=== PATIENT | female | born 1985 | race Caucasian/White ===

== ENCOUNTER 2019-02-05 09:33 | Inpatient (IN) ==
[2019-02-05] MEDS ORDERED: BACITRACIN VIAL ONE (12:26)
[2019-02-05] MEDS ORDERED: FENTANYL INJ 250 mcg ONE (12:26)
[2019-02-05] MEDS ORDERED: DECADRON INJ ONE (12:26)
[2019-02-05] MEDS ORDERED: NS IRRIGATION 1000 ML ONE (12:40)
[2019-02-05] MEDS ORDERED: NORCURON INJ 10 MG VIAL ONE (13:21)
[2019-02-05] MEDS ORDERED: NEOSTIGMINE INJ ONE (13:21)
[2019-02-05] MEDS ORDERED: DIPRIVAN VIAL ONE (13:21)
[2019-02-05] MEDS ORDERED: LTA KIT LIDOCAINE 4% ONE (13:21)
[2019-02-05] MEDS ORDERED: ROBINUL ONE (13:21)
[2019-02-05] MEDS ORDERED: VERSED ONE (13:21)
[2019-02-05] MEDS ORDERED: SUPRANE ONE (13:21)
[2019-02-05] MEDS ORDERED: ZOFRAN INJ 4 MG VIAL ONE (13:21)
[2019-02-05] MEDS ORDERED: TORADOL 30 MG VIAL ONE (14:00)
[2019-02-05] MEDS ORDERED: ANCEF 1 GRAM IV PREMIX IV ONE ×2 (22:00)
[2019-02-06] MEDS ORDERED: DILAUDID INJ IVP ONE ×3 (01:27→08:43)
[2019-02-06] MEDS ORDERED: D5 1/2 NS 1000 ML IV ONE (08:36)
[2019-02-06] MEDS ORDERED: PERCOCET TAB 5/325 MG PO ONE ×2 (12:01→17:02)
[2019-02-06] MEDS ORDERED: NICOTINE PATCH TD ONE (12:12)
== END 2019-02-06 17:35 | disposition home or self-care (01) | DRG 354 ==
LOC: MED/SURG 09:33
PROVIDERS: ADMIT Surgery; ATTEND Surgery
DX: K43.0 Incisional hernia with obstruction, without gangrene; K56.51 Intestinal adhesions [bands], with partial obstruction
CPT/HCPCS: A4216; J3490; J0690; J1100; J1170; J1885; J2250; J2405; J2704; J2710; J3010; S5010